=== PATIENT | female | born 1980 | race Caucasian/White ===

== ENCOUNTER 2017-01-12 20:48 | Emergency (ER) | payer OTHER ==
[2017-01-12 20:57] VITALS: BP 119/73; PULSE 90; RESP 18; TEMP 98.5; O2SAT 100
--- NOTE | 2017-01-12 21:41 | ED PDOC ---
HPI: CCC, URI, Sore Throat Time Seen by Provider: 01/12/17 21:03 Chief Complaint (Nursing): ENT Problem Chief Complaint (Provider): Sore Throat History Per: Patient History/Exam Limitations: no limitations Have you had recent travel within the past 21 days to any of the following countries: [place], [place], [place] or [place]?: No Onset/Duration Of Symptoms: Days (x2) Current Symptoms Are (Timing): Still Present Associated Symptoms: Sore Throat (worse w/swallowing but able to tolerate PO), Cough (mild). denies: Fever, Vomiting, Diarrhea Severity: Moderate Additional Complaint(s): Melanie Martínez is a 36 year old female, with no pertinent past medical history, who presents to the ED on 01/12/17 for the evaluation of moderate throat pain that she has experienced x2 days. Pain, reportedly worse with swallowing, has also been accompanied by a mild cough though patient denies fever, shortness of breath, vomiting or diarrhea. Tolerating PO. Has medicated with Percocet, left over from a previous 6 months ago, with transient relief. PMD: none provided Past Medical History Reviewed: Historical Data, Nursing Documentation, Vital Signs Vital Signs: Last Vital Signs Temp 98.5 F 01/12/17 20:55 Pulse 90 01/12/17 20:55 Resp 18 01/12/17 20:55 BP 119/73 01/12/17 20:55 Pulse Ox 100 01/12/17 21:44 - Medical History PMH: No Chronic Diseases - Surgical History Surgical History: - Family History Family History: States: Unknown Family Hx - Living Arrangements Living Arrangements: With Family - Home Medications Home Medications: Ambulatory Orders Medication Instructions Recorded Amoxicillin 875 mg PO BID #20 tab 01/12/17 - Allergies Allergies/Adverse Reactions: Allergies Allergy/AdvReac Type Severity Reaction Status Date / Time No Known Allergies Allergy Verified 01/12/17 20:55 Review of Systems ROS Statement: Except As Marked, All Systems Reviewed And Found Negative Constitutional: Negative for: Fever ENT: Positive for: Throat Pain (worse w/swallowing but tolerating PO) Respiratory: Positive for: Cough (mild). Negative for: Shortness of Breath Gastrointestinal: Negative for: Vomiting, Diarrhea Physical Exam - Reviewed Nursing Documentation Reviewed: Yes Vital Signs Reviewed: Yes - Physical Exam Appears: Positive for: Non-toxic, No Acute Distress ENT: Positive for: Pharyngeal Erythema, Tonsillar Exudate (b/l, white; no evidence of VEST FRONT PRESSER), Tonsillar Swelling (hyperemic erythema of b/l tonsils with (=) /symmetrical swelling) Lymphatic: Negative for: Adenopathy Neurologic/Psych: Positive for: Alert, Oriented - ECG O2 Sat by Pulse Oximetry: 100 (RA) Pulse Ox Interpretation: Normal Medical Decision Making Medical Decision Makin:03 Initial Impression: tonsillitis, possible Strep Initial Plan: * Rapid Strep * Dexamethasone 10mg IM * Reevaluation Scribe Attestation: Documented by Amy Mercer, acting as a scribe for Anusha Plascencia MD. Provider Scribe Attestation: All medical record entries made by the Scribe were at my direction and personally dictated by me. I have reviewed the chart and agree that the record accurately reflects my personal performance of the history, physical exam, medical decision making, and the department course for this patient. I have also personally directed, reviewed, and agree with the discharge instructions and disposition. Disposition - Clinical Impression Clinical Impression: Strep pharyngitis - Patient ED Disposition Is Patient to be Admitted: No Doctor Will See Patient In The: Office Counseled Patient/Family Regarding: Studies Performed, Diagnosis, Need For Followup - Disposition Referrals: [facility] [Outside] Disposition: Routine/Home Disposition Time: 22:41 Condition: GOOD Additional Instructions: Take medications as instructed. Follow up with your PCP in 2-3 days. Prescriptions: Amoxicillin 875 mg PO BID #20 tab Instructions: Strep Throat (ED)
== END 2017-01-12 22:50 | disposition home or self-care (01) ==
LOC: H.ER 20:48
DX: J02.0 Streptococcal pharyngitis (principal)